=== PATIENT | female | born 1995 | race Caucasian/White ===

== ENCOUNTER 2017-05-03 14:25 | Emergency (ER) | payer MEDICAID ==
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
[2017-05-03 16:21] VITALS: BP 128/68
== END 2017-05-03 16:20 | disposition home or self-care (01) ==
LOC: JD.ED 14:25
DX: R11.2 Nausea with vomiting, unspecified (principal); J45.909 Unspecified asthma, uncomplicated; Z96.22 Myringotomy tube(s) status; Z98.890 Other specified postprocedural states; Z87.891 Personal history of nicotine dependence
CPT/HCPCS: 36415; 84702; 99283; 99284

== ENCOUNTER 2017-07-08 20:18 | Emergency (ER) | payer MEDICAID ==
[2017-07-08 20:33] VITALS: BP 139/77
[2017-07-08] MEDS ORDERED: Acetaminophen/oxyCODONE 325-5 MG Tab PO ONE (20:36)
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
[2017-07-08] MEDS ORDERED: Ibuprofen 800 MG Tab PO ONE (21:17)
--- NOTE | 2017-07-13 07:57 | CR ---
Left ankle: Four views of the left ankle were obtained. Comparison: No previous study. Soft tissue swelling is identified. Ankle mortise is symmetric. No acute fracture, dislocation or other bony abnormality is identified. Impression: 1. Soft tissue swelling. 2. No bony abnormality is identified. Diagnostic code #2
== END 2017-07-08 21:27 | disposition home or self-care (01) ==
LOC: JD.ED 20:18
DX: S93.402A Sprain of unspecified ligament of left ankle, initial encounter (principal); J45.909 Unspecified asthma, uncomplicated; F32.9 Major depressive disorder, single episode, unspecified; E66.9 Obesity, unspecified; Z96.22 Myringotomy tube(s) status; Z98.890 Other specified postprocedural states; F17.210 Nicotine dependence, cigarettes, uncomplicated; Z88.5 Allergy status to narcotic agent; Z91.040 Latex allergy status; X50.9XXA Other and unspecified overexertion or strenuous movements or postures, initial encounter
CPT/HCPCS: 73610; 99284; A9270; 99283

== ENCOUNTER 2017-11-09 17:48 | Emergency (ER) | payer MEDICAID ==
[2017-11-09 18:02] VITALS: BP 143/105
[2017-11-09] MEDS ORDERED: HYDROmorphone 1 MG/ML Syringe IVPUSH ONE (18:13)
[2017-11-09] MEDS ORDERED: Ketorolac 60 MG/2 ML SDV IM ONE (18:13)
[2017-11-09] MEDS ORDERED: HYDROmorphone 1 MG/ML Syringe IM ONE (18:15)
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
--- NOTE | 2017-11-10 07:06 | CR ---
Lumbar spine: AP, lateral and coned-down lateral views centered to the lumbosacral junction were obtained. Vertebral body heights and disc spaces are maintained. Pedicles as well as visualized transverse and spinous processes are intact. No subluxation or fracture is seen. Impression: 1. No abnormality is seen on three-view lumbar spine study. Diagnostic code #1
== END 2017-11-09 19:03 | disposition home or self-care (01) ==
LOC: JD.ED 17:48
DX: M54.41 Lumbago with sciatica, right side (principal); M54.42 Lumbago with sciatica, left side; F17.210 Nicotine dependence, cigarettes, uncomplicated; Z88.5 Allergy status to narcotic agent; Z91.040 Latex allergy status
CPT/HCPCS: 72100; 96372; 99283; J1170; J1885

== ENCOUNTER 2017-12-24 21:15 | Emergency (ER) | payer MEDICAID ==
[2017-12-24 21:31] VITALS: BP 154/85
[2017-12-24] MEDS ORDERED: Ketorolac 60 MG/2 ML SDV IM ONE (22:35)
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
== END 2017-12-24 23:52 | disposition home or self-care (01) ==
LOC: JD.ED 21:15
DX: G89.29 Other chronic pain (principal); M54.5 Low back pain; F17.210 Nicotine dependence, cigarettes, uncomplicated; Z91.040 Latex allergy status; Z88.5 Allergy status to narcotic agent; Z76.5 Malingerer [conscious simulation]
CPT/HCPCS: 96372; 99283; J1885; 99282

== ENCOUNTER → 2018-02-19 | Day surgery (SDC) | payer MEDICAID ==
[~2018-02-19] MED LIST: Acetaminophen/HYDROcodone 325-5 MG Tab PO ONE; Albuterol 0.083% 2.5 MG/3 ML Neb Soln NEB ONE; Albuterol 0.083% 2.5 MG/3 ML Neb Soln NEB PRN; Bupivacaine 0.5% 30 ML SDV ONE; Dexamethasone 4 MG/ML 5 ML MDV ONE; Diatrizoate Meglumine/Diatrizoate Sodium 37% 120 ML Bottle PO ONE; HYDROmorphone 0.5 MG/0.5 ML SYRINGE IVPUSH ONE; HYDROmorphone 0.5 MG/0.5 ML Syringe IVPUSH PRN; Iopamidol 612 MG/ML 150 ML Bottle IVPUSH ONE; Ketorolac 30 MG/ML SDV IVPUSH PRN; Ketorolac 30 MG/ML SDV ONE; LORazepam 1 MG Tab PO ONE; Lactated Ringers 1,000 ML IV SCH; Lactated Ringers 1,000 ML ONE; Lactated Ringers 2,000 ML ONE; Lidocaine 1% 2 ML ONE; Lidocaine 1% 6 ML ONE; Midazolam 1 MG/ML 2 ML SDV IVPUSH PRN; Midazolam 1 MG/ML 2 ML SDV ONE; Neostigmine Methylsulfate 1 MG/ML 5 ML Syringe ONE; Ondansetron 4 MG in Sodium Chloride 0.9% 50 ML IV PRN; Ondansetron 4 MG/2 ML SDV IV PRN; Ondansetron 4 MG/2 ML SDV IVPUSH PRN; Ondansetron 4 MG/2 ML SDV ONE; Phenylephrine 1 MG in Sodium Chloride 0.9% 10 ML IV SCH; Propofol 200 MG/20 ML SDV ONE; Rocuronium 50 MG/5 ML Vial ONE; Sodium Chloride 0.9% 1,000 ML IV ONE; Sodium Chloride 0.9% 10 ML Syringe FLUSH PRN; Succinylcholine/Normal Saline 100 MG/5 ML Syringe ONE; cefOXitin 2 GM in Premix Bag 1 BAG IV ONE; diphenhydrAMINE 50 MG/ML SDV IVPUSH PRN; fentaNYL 100 MCG/2 ML SDV IVPUSH PRN; fentaNYL 100 MCG/2 ML SDV ONE; fentaNYL 250 MCG/5 ML SDV ONE
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
--- NOTE | 2018-02-19 23:33 | PCM.POSTAN ---
POST ANESTHESIA ASSESSMENT - MENTAL STATUS Mental Status: Alert (122) - VITAL SIGNS Pulse Rate: 122 SaO2: 95 (3 LPM nasal cannula) Resp Rate: 17 Blood Pressure: 147/82 Temperature: 36.9 C - RESPIRATORY Respiratory Status: Respiratory Rate WNL, Airway Patent, O2 Saturation Stable, Supplemental Oxygen - CARDIOVASCULAR CV Status: Pulse Rate WNL, Blood Pressure Stable - GASTROINTESTINAL GI Status: No Symptoms - POST OP HYDRATION Hydration Status: Adequate & Stable
[2018-02-20 08:56] VITALS: BP 120/64
--- NOTE | 2018-02-20 10:11 | PCM48HPAN ---
Post Anesthesia Note - EVALUATION WITHIN 48HRS OF ANESTHETIC Vital Signs in Normal Range: Yes Patient Participated in Evaluation: Yes Respiratory Function Stable: Yes Airway Patent: Yes Cardiovascular Function Stable: Yes Hydration Status Stable: Yes Pain Control Satisfactory: Yes Nausea and Vomiting Control Satisfactory: Yes Mental Status Recovered: Yes
--- NOTE | 2018-02-20 16:37 | CT ---
CT abdomen and pelvis Technique: Multiple axial sections were obtained from above the dome of the diaphragm inferiorly through the pubic symphysis. Intravenous and oral contrast was utilized. Comparison: No prior abdominal imaging. Findings: Visualized lung bases show nothing acute. Liver shows no focal abnormality. Spleen appears within normal limits. Adrenal glands show no nodule. Gallbladder contains no calcified gallstones. Pancreas is within normal limits. Kidneys show symmetric contrast enhancement without hydronephrosis or mass. Aorta shows no aneurysmal dilatation. No retroperitoneal adenopathy or mesenteric abnormalities are seen. No pelvic mass or adenopathy is seen. Appendix is seen which appears normal in size. Equivocal inflammatory change around the tip of this appendix. Appendix does not appear dilated or show any wall thickening in this area. Bone window settings were reviewed which appear within normal limits. Impression: 1. Very minimal inflammatory change around the tip of the appendix. No appendiceal dilatation or wall thickening is seen in this area. This could represent minimal tip appendicitis but may also be incidental. Please correlate with the patient's symptoms and if white count is elevated. 2. CT study of the abdomen and pelvis is otherwise unremarkable. Diagnostic code #3 I agree with preliminary report from [facility], finalized at 02/19/18, 7:33 PM Central Time
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
--- NOTE | 2018-02-22 09:07 | OR ---
DATE OF OPERATION: 02/19/2018 SURGEON: Ruiz Jack MD PREOPERATIVE DIAGNOSIS: Acute appendicitis. POSTOPERATIVE DIAGNOSIS: Acute appendicitis. OPERATION PERFORMED: Laparoscopic appendectomy. ANESTHESIA: Done under general anesthetic. ESTIMATED BLOOD LOSS: About 15 mL. FINDINGS: Mildly edematous tip of the appendix. DESCRIPTION OF PROCEDURE: The patient was taken to the operating room, placed in a supine position connected to monitoring equipment, given a general anesthetic, and intubated. SCDs were placed. Antibiotics had been given and the abdomen prepped with a chlorhexidine and alcohol prep, and draped off in a sterile fashion. Incision was made just above the umbilicus, and using a 5-mm extra long trocar, the abdominal cavity was entered. A pneumoperitoneum was established and a 5-mm 30- degree camera was inserted showing the appendix in the right lower quadrant with edematous tip. A 5-mm trocar placed in the right upper quadrant and 1 in the right lower quadrant and the appendix was mobilized, and a window was then placed in the mesoappendix at the base of the cecum. The long 5-mm trocar at the supraumbilical area was removed and replaced with a long 12-mm trocar. Endo- ligator was then inserted into the abdominal cavity and placed through the window and the appendix was from its attachments to the cecum. The mesentery was then mobilized further and another firing of the Endo-ligator the mesoappendix from the appendix and the appendix was then placed in an Endobag and removed from the abdominal cavity through the 12-mm trocar. The area was checked, a few clips were placed for hemostasis. It was then irrigated and watched and excellent hemostasis noted. This completed the intraabdominal portion. All the ports were removed and the skin of each port closed with subdermal 4-0 Dexon suture. Steri-Strips and sterile dressing placed and each port was anesthetized with 0.5% Marcaine. The patient tolerated the procedure and sent to recovery room in a stable condition. GEOFF /[id number]
== END | disposition home or self-care (01) ==
LOC: JD.ED 13:51 → JD.SDS 18:58
PROVIDERS: ATTEND Surgery
DX: K35.80 Unspecified acute appendicitis (principal); E66.01 Morbid (severe) obesity due to excess calories
CPT/HCPCS: 36415; 44970; 74177; 80053; 81001; 81025; 85025; 86140; 94640; 96361; 96365; 99285; A9270; J0330; J0694; J1100; J1170; J1885; J2001; J2250; J2405; J2710; J3010; J7040; J7050; J7120; Q9963; Q9967; 00840; 99284; J2704

== ENCOUNTER 2018-03-28 19:21 | Emergency (ER) | payer MEDICAID ==
[2018-03-28 20:03] VITALS: BP 134/68
[2018-03-28] MEDS ORDERED: Sulfamethoxazole/Trimethoprim 800-160 MG Tab PO ONE (20:25)
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
== END 2018-03-28 20:30 | disposition home or self-care (01) ==
LOC: JD.ED 19:21
DX: T81.4XXA Infection following a procedure, initial encounter (principal); J45.909 Unspecified asthma, uncomplicated; Z79.899 Other long term (current) drug therapy; Z91.040 Latex allergy status; Z88.5 Allergy status to narcotic agent; Z90.89 Acquired absence of other organs; Z87.891 Personal history of nicotine dependence
CPT/HCPCS: 99282; A9270

== ENCOUNTER 2018-04-05 12:59 | Emergency (ER) | payer MEDICAID ==
[2018-04-05] MEDS ORDERED: Fluorescein 0.6 MG Ophth Strip EYEBOTH ONE (13:32)
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
[2018-04-05] MEDS ORDERED: LORazepam 2 MG/ML SDV IVPUSH ONE (14:04)
[2018-04-05] MEDS ORDERED: Sodium Chloride 0.9% 10 ML Syringe FLUSH PRN (14:04)
[2018-04-05] MEDS ORDERED: LORazepam 2 MG/ML SDV IM ONE (14:21)
--- NOTE | 2018-04-05 14:51 | CT ---
Head CT Technique: Multiple axial sections through the brain were obtained. Intravenous contrast was not utilized. Comparison: No previous intracranial imaging. Findings: Ventricles along with basal cisterns and sulci over the convexities are within normal limits for the patient's age. No abnormal parenchymal densities are seen. No evidence of intracranial hemorrhage. No midline shift or mass effect is seen. Bone window settings were reviewed which shows no acute calvarial abnormality. Impression: 1. No acute intracranial abnormality is identified on noncontrast head CT exam. Diagnostic code #1
[2018-04-05] MEDS ORDERED: diphenhydrAMINE 50 MG/ML SDV IM ONE (15:22)
[2018-04-05] MEDS ORDERED: Ketorolac 60 MG/2 ML SDV IM ONE (15:22)
[2018-04-05 15:41] VITALS: BP 112/94
== END 2018-04-05 16:11 | disposition home or self-care (01) ==
LOC: JD.ED 12:59
DX: G43.909 Migraine, unspecified, not intractable, without status migrainosus (principal); J45.909 Unspecified asthma, uncomplicated; Z91.040 Latex allergy status; Z79.899 Other long term (current) drug therapy; Z87.891 Personal history of nicotine dependence
CPT/HCPCS: 70450; 96372; 99285; J1200; J1885; J2060; 99284